=== PATIENT | female | born 1970 | race Caucasian/White ===

== ENCOUNTER → 2017-01-13 | Outpatient (CLI) | payer OTHER, BC ==
--- NOTE | ~2017-01-13 | EKG ---
[address] [address] ELECTROCARDIOGRAM REPORT Name: BARRINGTON MARQUEZ [id number] Admission: 01/13/17 Attend Phys: Gaudencio Clifford MD Discharge: Date of : 72 Report #: [id number] THIS REPORT FOR: //name// 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
[2017-01-13 09:07] LABS: HEMATOCRIT 43.7 % (37.0-47.0); HEMOGLOBIN 14.4 gm/dL (12.0-15.0); MANUAL DIFF YES; MCH 33.6 pg (26.0-34.0); MCHC 32.9 g/dL (28.0-37.0); MCV 101.9 fL (80.0-100.0); PLATELET COUNT 145 thou/uL (150-400); RBC 4.29 mil/uL (4.20-5.00); RDW 13.7 % (10.5-14.5); WBC 6.8 thou/uL (4.0-11.0)
[2017-01-13 09:20] LABS: ABSOLUTE NEUTROPHILS 2.4 thou/uL (1.4-8.2); ATYPICAL LYMPHS 1 %; TOTAL CELL COUNT 100
[2017-01-13 09:21] LABS: ANISOCYTOSIS 1+
== END ==
LOC: LABMALL 07:08 → NUC 07:08
PROVIDERS: Otolaryngology Plastic Surgery within the Head & Neck
DX: N18.4 Chronic kidney disease, stage 4 (severe) (principal); N25.81 Secondary hyperparathyroidism of renal origin; E03.9 Hypothyroidism, unspecified; Z94.0 Kidney transplant status

== ENCOUNTER 2017-01-26 05:35 | Day surgery (SDC) | payer OTHER, BC ==
[~2017-01-26] VITALS: Ht 132.1 cm; Wt 77.1 kg
--- NOTE | ~2017-01-26 | O ---
[facility] [place] [address] OPERATIVE REPORT Name: BARRINGTON MARQUEZ Room #: DEP [facility] M.R.#: [id number] Admission: 01/26/17 Attend Phys: Gaudencio Clifford MD Discharge: 01/27/17 Date of : 72 Report #: [id number] THIS REPORT FOR: //name// CC: Sawyer Clifford DATE OF SERVICE: 01/26/2017 SURGEON: Gaudencio Clifofrd MD. PREOPERATIVE DIAGNOSES: 1. Secondary hyperparathyroidism. 2. History of kidney transplant. 3. Chronic renal disease stage 4. 4. Hypothyroidism. POSTOPERATIVE DIAGNOSES: 1. Secondary hyperparathyroidism. 2. History of kidney transplant. 3. Chronic renal disease stage 4. 4. Hypothyroidism. OPERATION PERFORMED: 1. Parathyroidectomy. 2. Autotransplantation of right superior parathyroid to right sternocleidomastoid muscle. 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 Wang for definitive treatment on ongoing, secondary hyperparathyroidism. The patient has had parathyroid hormone as high as 377.2 and calcium in the 10.8-11.2 range. She has chronic renal disease and history of renal transplant on 03/12/2016. Prior to that, she was on peritoneal dialysis. Options of parathyroidectomy were discussed. DESCRIPTION OF PROCEDURE: The patient was brought to the operating room and placed supine on the operating table. After adequate general anesthesia was achieved via endotracheal intubation with a nerve integrity monitoring endotracheal tube, the neck was hyperextended and the planned incision was marked out on relaxed skin tension line, just superior to the manubrium. It was injected with 1% Xylocaine with 1:100,000 epinephrine. As a separate part of the procedure, ground electrodes were placed in the soft tissue overlying the sternum and contralateral shoulder. These were connected to the electrodes from the endotracheal tube. Electrode impedance and [facility] [address] [place] [address] OPERATIVE REPORT Name: BARRINGTON MARQUEZ Room #: DEP [facility] M.R.#: [id number] Admission: 01/26/17 Attend Phys: Gaudencio Clifford MD Discharge: 01/27/17 Date of : 72 Report #: [id number] resistance was measured and found to be acceptable. Stimulus and threshold intensity parameters were set, and the patient was monitored for the entirety of the case for approximately one and half hour in order to locate and protect the recurrent laryngeal nerve. She was then prepped and draped in the sterile fashion. Procedure began with an incision through skin, subcutaneous tissue, and platysma. Subplatysmal flaps were elevated superiorly and inferiorly. Dissection was made down to the strap muscles. These were divided vertically in the midline and retracted laterally. Beginning on the patient's left side, the dissection began along the inferior thyroid artery. The large parathyroid adenoma was easily located. This was then dissected free, its blood supply taken down with Ligaclips and was delivered in a specimen cup with saline to the back table. Dissection was then continued superiorly. The superior parathyroid was found adjacent to the cricothyroid joint. This was again enlarged. This was dissected free and taken down completely. The afferent and efferent vessels were controlled with clip ligature. Attention was then turned to the right side. The noted nodule that has been seen on ultrasound was then dissected on the right inferior, medial and inferior to the thyroid gland. This was also placed in a specimen cup and marked. The superior parathyroid was found adjacent to the cricothyroid joint again enlarged. This was dissected, clamped between Ligaclips, and divided. The specimens were sent to pathology. They all returned hypercellular parathyroid, except for the right inferior, which had been noted on the ultrasound, which was ectopic thyroid tissue. While awaiting, complete examination was made on the remainder of the neck, down to the thymus, along the carotid and jugular vein superiorly, and no other abnormal mass was noted. After excision of the first 2 parathyroids, iPTH was drawn. The preoperative was in the 260 range that decreased to about 140. After the removal of the last parathyroid, this was redrawn, but is pending at the time of dictation. Hemostasis was assured with bipolar cautery and clip ligature. Powdered Ermias was placed opposite each cricothyroid joint. Strap muscles were then closed vertically in the midline with interrupted 3-0 Vicryl. A 10-Qatari Juan drain was placed through the separate stab incision, curled into the wound, and connected to bulb suction. This was sutured in place with 2-0 silk. The platysmal layer was then closed with interrupted 3-0 Vicryl, 4-0 Vicryl deep dermal sutures were then placed, and then a 5-0 running subcuticular Prolene on skin. The patient was dressed with Mastisol, Steri-Strips, and Op-Site. The drain was sutured in place with 2-0 silk. She was then discharged back to anesthesia, awaken without difficulty, and returned to recovery in good condition. Sponge and needle counts were correct. There were no complications. Blood loss was about 50 mL. The patient will be watched overnight for monitoring, and assuming she does well, discharged to home with plans to follow up with me in 1 week for suture removal and 48 hours for drain removal. Written and verbal discharge instructions and emergency precautions have been given to her . [facility] [address] [place] [address] OPERATIVE REPORT Name: BARRINGTON MARQUEZ Room #: DEP [facility] M.R.#: [id number] Admission: 01/26/17 Attend Phys: Gaudencio Clifford MD Discharge: 01/27/17 Date of : 72 Report #: [id number] DISCHARGE MEDICATIONS: Include cephalexin 500 mg b.i.d. for 10 days, Phenergan suppository 25 mg 1 per rectum q. 4-6 hours p.r.n., hydrocodone/acetaminophen 7.5/325 1-2 q.4-6 hours p.r.n., Tums 2 tablets t.i.d., Rocaltrol 0.25 mcg 2 b.i.d. for 7 days, 1 b.i.d. for 7 days, and 1 every day for 7 days. She is instructed on light activity and soft diet. <ELECTRONICALLY SIGNED> By: Gaudencio Clifford MD 01/28/17 1645 1558 1828 Gaudencio Clifford MD /nt
--- NOTE | ~2017-01-26 | S ---
[facility] [place] [address] SURGICAL PATH RPT PROCEDURE Name: BARRINGTON MARQUEZ Room #: DEP [facility] William.#: [id number] Admission: 01/26/17 Date of : 72 Discharge: 01/27/17 Report #: [id number] Path Case #: [id number] PATHOLOGY REPORT COLLECTION DATE: 01/26/2017 RECEIVED DATE: 01/26/2017 SUBMITTING PHYS: Dr. Gaudencio Clifford OTHER PHYS: Dr. Hiro Han SPECIMEN(S) RECEIVED: A.Left inferior r/o parathyroid B.Left superior parathyroid C.Right inferior r/o parathyroid D.Right superior r/o parathyroid * * * * * * * * * * * * FINAL DIAGNOSIS: A. Parathyroid, left inferior r/o parathyroid, biopsy: - Hypercellular parathyroid tissue present. - Unremarkable thymus within the fibroadipose tissue. B. Parathyroid, left superior parathyroid, biopsy: - Hypercellular parathyroid tissue present. C. Parathyroid, right inferior r/o parathyroid, biopsy: - Thyroid tissue with nodular hyperplasia. - No parathyroid tissue present. D. Parathyroid, right superior r/o parathyroid, biopsy: - Hypercellular parathyroid tissue present. - Unremarkable thymus within the fibroadipose tissue PATHOLOGIST: Adenike Bah M.D. REPORT ELECTRONICALLY SIGNED BY: Adenike Bah M.D. DATE/TIME: 01/27/2017 16:00 * * * * * * * * * * * * GROSS PATHOLOGY: A. Received fresh from the OR labeled with the patient's name, and "left inferior rule out parathyroid", consists of 0.3 grams white-lilly fibroadipose tissue measuring approximately 1.6 cm. Tissue is bisected and submitted entirely for frozen section as FSA1, subsequently submitted for permanent sections as A1. B. Received fresh from the OR labeled with the patient's name, and "left superior rule out parathyroid", consists of an oval brown-lilly tissue measuring 0.8 cm, and 0.2 grams. The capsule is inked black and the specimen is submitted entirely for frozen section as FSB1, subsequently submitted for permanent sections as B1. [facility] [address] [place] [address] SURGICAL PATH RPT PROCEDURE Name: BARRINGTON MARQUEZ Room #: DEP [facility] M.R.#: [id number] Admission: 01/26/17 Date of : 72 Discharge: 01/27/17 Report #: [id number] Path Case #: [id number] C. Received fresh from the OR labeled with the patient's name, and "right inferior parathyroid", consists of a white-lilly fragment of fibroadipose tissue measuring 1.5 x 0.3 x 0.2 cm of 0.1 grams. The specimen is inked blue and submitted entirely for frozen section as FSC1, subsequently submitted for permanent sections as C1. D. Received fresh from the OR labeled with the patient's name, and "right superior rule out parathyroid", consists of a 0.5 cm oval red-lilly tissue of 0.1 gram. The specimen is inked green, and submitted entirely for frozen section as FSD1, subsequently submitted for permanent sections as D1. (IUV;kurt; d:t: 01/26/2017) FROZEN SECTION DIAGNOSIS: (Dr. Adenike Bah) FSA1, left inferior parathyroid, biopsy: - Hypercellular parathyroid tissue present. FSB1, left superior parathyroid, biopsy: - Hypercellular parathyroid tissue present. FSC1, right inferior parathyroid, biopsy: - Thyroid tissue present. FSD1, right superior parathyroid, biopsy: - Hypercellular parathyroid tissue present. These findings were discussed with Dr. Gaudencio Clifford in the OR1 at [facility] and a written report was placed in the patient's chart. Testing performed by [facility] at [facility] [address] [place] [address] CLINICAL HISTORY: Procedure: Parathyroid autotransplant, undergoing parathyroidectomy with history of kidney transplant along with secondary hyperparathyroidism. INITIAL CPT CODE(S): A; 53194, 11593 A, D; 76284(2) B; 08383, 99689 C; 87344, 85738 D; 22225, 49474 Professional services performed by [facility] at [facility] [address] [place] [address] Technical services performed by [facility] at [address] [place] [address], [address], [place] [address]. [facility] [place] [address] SURGICAL PATH RPT PROCEDURE Name: BARRINGTON MARQUEZ Room #: DEP [facility] Ingrid#: [id number] Admission: 01/26/17 Date of : 72 Discharge: 01/27/17 Report #: [id number] Path Case #: [id number] [place] [id number] [address] [address] PHONE: [phone] DIRECTOR: Bobby Sanabria M.D. * * * END OF REPORT * * *
[~2017-01-26 05:35] MED LIST: ASPIR 8181 MG PO; BIOTIN1 M1 PO; DEPAKOTE ER500 MG PO; DITROPAN XL10 M1 PO; LEVOTHYROXINE 0.1 MG PO; MYFORTIC180 MG PO; PROGRAF1 MG PO
[2017-01-26 09:00] VITALS: BP 128/75
[2017-01-26 10:34] LABS: CALCIUM 11.2 mg/dL (8.5-10.1); CREATININE 1.2 mg/dL (0.6-1.0); POTASSIUM 5.3 mmol/L (3.5-5.1)
[2017-01-26 10:40] LABS: ALBUMIN 3.3 g/dL (3.4-5.0); TOTAL BILIRUBIN 0.3 mg/dL (<0.1-1.0); TOTAL PROTEIN 6.6 g/dL (6.4-8.2)
[2017-01-26 17:20] LABS: ALBUMIN 3.2 g/dL (3.4-5.0); MAGNESIUM 1.8 mg/dL (1.8-2.4)
[2017-01-26 17:55] VITALS: BP 148/76
[2017-01-26 18:27] VITALS: BP 132/69
[2017-01-26 21:41] VITALS: BP 121/74
[2017-01-27 00:11] VITALS: BP 123/60
[2017-01-27 06:47] VITALS: BP 110/66
[2017-01-27 08:00] VITALS: BP 124/53
[2017-01-27 13:43] VITALS: BP 124/53
[2017-01-27 13:47] VITALS: BP 124/53
== END 2017-01-27 15:25 | disposition home or self-care (01) ==
LOC: TBA 05:35 → OR 05:35 → 4N 18:03 → OR 01-27 15:25
PROVIDERS: Otolaryngology Plastic Surgery within the Head & Neck
DX: N25.81 Secondary hyperparathyroidism of renal origin (principal); I12.9 Hypertensive chronic kidney disease with stage 1 through stage 4 chronic kidney disease, or unspecified chronic kidney disease; N18.4 Chronic kidney disease, stage 4 (severe); R56.9 Unspecified convulsions; Z94.0 Kidney transplant status; D64.89 Other specified anemias
CPT/HCPCS: 50010; 50101; 50331; 50386; 50417; 52190; 52220; 52287; 56524; 56526; 56528; 56760; 57006; 62110; 62900; 70005